=== PATIENT | female | born 1985 | race Hispanic/Latino ===

== ENCOUNTER 2017-11-08 19:57 | Emergency (ER) | payer BC ==
[2017-11-08] MEDS ORDERED: Famotidine 20 MG TAB ONE (21:42)
[2017-11-08] MEDS ORDERED: predniSONE 20 MG TAB ONE (21:42)
== END 2017-11-08 21:52 | disposition home or self-care (01) ==
LOC: ERS 19:57
DX: T63.441A Toxic effect of venom of bees, accidental (unintentional), initial encounter (principal)
CPT/HCPCS: 99282; J7506